=== PATIENT | male | born 1965 | race Hispanic/Latino ===

== ENCOUNTER 2018-09-27 07:12 | Day surgery (SDC) | payer MEDICARE ==
[~2018-09-27] VITALS: Ht 175.3 cm; Wt 96.8 kg
[~2018-09-27 07:12] MED LIST: SODIUM CHLORIDE 0.9% 1000ML 1,000 ML IV ONE
[2018-09-27 08:01] VITALS: BP 149/70
[2018-09-27] MEDS ORDERED: OMEP20TA25 PO (08:46)
[2018-09-27] MEDS ORDERED: NADO20TA12 PO (08:46)
[2018-09-27] MEDS ORDERED: LACT10SO PO (08:46)
[2018-09-27] MEDS ORDERED: TAMS0.4C32 PO (08:46)
[2018-09-27] MEDS ORDERED: PROPOFOL 10 MG/ML 20ML VIAL IV ONE ×2 (09:43)
[2018-09-27 09:53] VITALS: BP 79/26
[2018-09-27 09:57] VITALS: BP 80/23
[2018-09-27 10:03] VITALS: BP 92/27
[2018-09-27 10:08] VITALS: BP 111/47
[2018-09-27 10:12] VITALS: BP 121/56
== END 2018-09-27 10:22 | disposition home or self-care (01) ==
LOC: ENDO 07:12 → DAH 07:12 → ENDO 10:22
PROVIDERS: ATTEND Internal Medicine Gastroenterology
DX: K29.50 Unspecified chronic gastritis without bleeding (principal); K74.60 Unspecified cirrhosis of liver; Z68.31 Body mass index [BMI] 31.0-31.9, adult; K21.9 Gastro-esophageal reflux disease without esophagitis; Z79.899 Other long term (current) drug therapy; N19 Unspecified kidney failure; I50.9 Heart failure, unspecified; Z85.05 Personal history of malignant neoplasm of liver
CPT/HCPCS: 36415; 43239; 84132; 88305; A4606; J2704 ×2; J7030